=== PATIENT | female | born 1970 | race African-American/Black ===

== ENCOUNTER 2017-11-02 20:08 | Emergency (ER) | payer OTHER ==
[~2017-11-02] VITALS: Ht 154.9 cm; Wt 56.7 kg
[~2017-11-02 20:08] MED LIST: ALBUTEROL0.09 MG/A2 INH; AMOXICILLIN500 M2 PO; AMOXICILLIN500 MG PO; ANAPROX DS550 MG PO; BACTROBAN OINT22 GM PO; CLARITIN10 MG PO; ELIMITE 5%60 GM PO; HYDROCODONE BIT1 T11 PO; IBU800 M1 PO; LORAZEPAM1 MG PO; MOTRIN800 MG PO; NAPROSYN500 MG PO; NORCO 325 MG-51 TAB PO; PREDNISONE20 M1 PO; ROBAXIN750 MG PO; ROBITUSSIN AC 110 ML PO; ROBITUSSIN DM 105 ML PO; TRAMADOL HCL50 MG PO; TRIMOX500 MG PO; ZYRTEC10 MG PO
[2017-11-02] MEDS ORDERED: ANAPROX DS550 MG PO (21:14)
== END 2017-11-02 20:30 | disposition left against medical advice (07) ==
LOC: ED 20:08
DX: Z53.21 Procedure and treatment not carried out due to patient leaving prior to being seen by health care provider (principal)

== ENCOUNTER 2017-11-02 20:27 | Emergency (ER) | payer OTHER ==
[~2017-11-02] VITALS: Wt 102.1 kg
[2017-11-02 20:31] VITALS: BP 133/85
[2017-11-02] MEDS ORDERED: ANAPROX DS550 MG PO (21:14)
== END 2017-11-02 21:15 | disposition left against medical advice (07) ==
LOC: ED 20:27
DX: S63.8X2A Sprain of other part of left wrist and hand, initial encounter (principal); W19.XXXA Unspecified fall, initial encounter; Y93.89 Activity, other specified; Y92.89 Other specified places as the place of occurrence of the external cause; Y99.9 Unspecified external cause status

== ENCOUNTER → 2018-06-07 | Outpatient (CLI) | payer OTHER | END | disposition home or self-care (01) | LOC: MAMMO 14:04 | DX: Z12.31 Encounter for screening mammogram for malignant neoplasm of breast (principal) ==

== ENCOUNTER → 2020-04-20 | Outpatient (CLI) | payer OTHER | END | disposition home or self-care (01) | LOC: COVID19 10:13 | PROVIDERS: ATTEND Family Medicine | DX: Z20.828 Contact with and (suspected) exposure to other viral communicable diseases (principal) ==

== ENCOUNTER → 2020-05-20 | Outpatient (CLI) | payer OTHER | END | disposition home or self-care (01) | LOC: MAMMO 13:38 | PROVIDERS: ATTEND Family Medicine | DX: Z12.31 Encounter for screening mammogram for malignant neoplasm of breast (principal) ==

== ENCOUNTER 2020-09-26 09:17 | Emergency (ER) | payer OTHER ==
[~2020-09-26] VITALS: Ht 170.1 cm; Wt 81.6 kg
[2020-09-26 09:26] VITALS: BP 121/79
== END 2020-09-26 13:05 | disposition home or self-care (01) ==
LOC: ED 09:17
DX: S49.92XA Unspecified injury of left shoulder and upper arm, initial encounter (principal); F17.200 Nicotine dependence, unspecified, uncomplicated; Z79.899 Other long term (current) drug therapy; Z90.49 Acquired absence of other specified parts of digestive tract; Z98.890 Other specified postprocedural states; Z90.711 Acquired absence of uterus with remaining cervical stump; X58.XXXA Exposure to other specified factors, initial encounter; Y93.89 Activity, other specified; Y92.89 Other specified places as the place of occurrence of the external cause; Y99.8 Other external cause status

== ENCOUNTER → 2021-08-13 | Outpatient (CLI) | payer OTHER | END | disposition home or self-care (01) | LOC: MAMMO 10:22 | PROVIDERS: ATTEND Family Medicine | DX: Z12.31 Encounter for screening mammogram for malignant neoplasm of breast (principal); Z80.3 Family history of malignant neoplasm of breast ==

== ENCOUNTER → 2021-09-10 | Outpatient (CLI) | payer OTHER ==
[~2021-09-10] MED LIST changes: +BUPROPION ER100 MG PO; +BUSPIRONE30 MG PO; +ONE DAILY WITH1 EACH PO; +OSTERA TABLET1 EACH PO; +TOPROL XL25 MG PO
== END | disposition home or self-care (01) ==
LOC: CARD 01:43
PROVIDERS: ATTEND Internal Medicine Cardiovascular Disease
DX: R00.2 Palpitations (principal); R06.02 Shortness of breath; I20.8 Other forms of angina pectoris; F41.9 Anxiety disorder, unspecified; K21.9 Gastro-esophageal reflux disease without esophagitis; G44.029 Chronic cluster headache, not intractable; R06.00 Dyspnea, unspecified; R53.83 Other fatigue

== ENCOUNTER → 2021-10-02 | Day surgery (SDC) | payer OTHER ==
[~2021-10-02] VITALS: Ht 154.9 cm; Wt 88.5 kg
[2021-10-02 08:26] VITALS: BP 108/70
[2021-10-02 09:15] VITALS: BP 114/67
[2021-10-02 09:30] VITALS: BP 120/75
[2021-10-02 09:44] VITALS: BP 124/79
== END | disposition home or self-care (01) ==
LOC: SDC 09-29 10:15
PROVIDERS: ATTEND Surgery
DX: Z12.11 Encounter for screening for malignant neoplasm of colon (principal); K21.9 Gastro-esophageal reflux disease without esophagitis; F41.9 Anxiety disorder, unspecified; F17.210 Nicotine dependence, cigarettes, uncomplicated; Z90.49 Acquired absence of other specified parts of digestive tract; Z98.84 Bariatric surgery status; Z79.899 Other long term (current) drug therapy

== ENCOUNTER 2022-03-08 14:30 | Emergency (ER) | payer OTHER ==
[~2022-03-08] VITALS: Ht 154.9 cm; Wt 88.5 kg
[2022-03-08 14:40] VITALS: BP 127/80
[2022-03-08 15:00] LABS: BASO % 0.6 % (0.0-1.0); EOS # 0.1 10*3/uL (0.0-0.4); EOS % 1.9 % (1.0-4.0); HEMATOCRIT 42.8 % (37.0-47.0); LYMPH # 2.1 10*3/uL (1.3-4.4); LYMPH % 31.3 % (27.0-41.0); MEAN CELL VOLUME 87.2 fl (81.0-99.0); MEAN CORPUSCULAR HGB 28.1 pg (27.0-31.0); MEAN CORPUSCULAR HGB CONC 32.2 g/dl (33.0-37.0); MEAN PLATELET VOLUME 8.9 fl (9.6-12.3); MONO # 0.7 10*3/uL (0.1-1.0); MONO % 10.3 % (3.0-9.0); NEUT # 3.8 10*3/uL (2.3-7.9); NEUT % 55.6 % (47.0-73.0); PLATELET COUNT AUTOMATED 261 10*3/uL (130-400); RED BLOOD COUNT 4.91 10*6/uL (4.10-5.10); RED CELL DISTRI WIDTH 13.5 % (0-14.5); WHITE BLOOD COUNT 6.8 10*3/uL (4.8-10.8)
[2022-03-08 15:17] LABS: BILIRUBIN Negative (Negative); BLOOD 1+ (Negative); CLARITY Clear (Clear); COLOR Yellow (Yellow); GLUCOSE Negative (Negative); KETONE Negative (Negative); LEUKO ESTERASE Negative (Negative); NITRITE Negative (Negative); UROBILINOGEN 0.2 E.U./dl (0.0-1.0)
[2022-03-08 15:21] LABS: ALKALINE PHOSPHATASE 63 U/L (45-117); BUN 11 mg/dl (7-24); CREATININE 0.97 mg/dL (0.55-1.02); LIPASE 226 U/L (73-393); SGOT/AST 37 IU/L (3-35); SGPT/ALT 41 U/L (12-78); TOTAL PROTEIN 6.9 gm/dL (6.4-8.2)
[2022-03-08 15:24] LABS: CHLORIDE 110 mmol/L (98-107); POTASSIUM 3.8 mmol/L (3.5-5.1); SODIUM 139 mmol/L (136-145)
[2022-03-08 15:39] LABS: BACTERIA 1+; EPITHELIAL CELLS 16-20; WBC 0-2 wbc/hpf (0-5)
[2022-03-08] MEDS ORDERED: ONDANSETRON4 MG SL (16:41)
== END 2022-03-08 16:47 | disposition home or self-care (01) ==
LOC: ED 14:30
PROVIDERS: Nurse Practitioner Family
DX: A08.39 Other viral enteritis (principal); R10.11 Right upper quadrant pain; R10.32 Left lower quadrant pain; Z98.890 Other specified postprocedural states; Z90.49 Acquired absence of other specified parts of digestive tract; Z90.710 Acquired absence of both cervix and uterus

== ENCOUNTER 2022-04-14 18:01 | Emergency (ER) | payer OTHER ==
[~2022-04-14] VITALS: Ht 154.9 cm; Wt 88.5 kg
[~2022-04-14 18:01] MED LIST changes: +ONDANSETRON4 MG SL
[2022-04-14 18:11] VITALS: BP 117/83
[2022-04-14] MEDS ORDERED: ZITHROMAX250 MG PO (20:10)
[2022-04-14] MEDS ORDERED: PREDNISONE20 M1 PO (20:10)
== END 2022-04-14 21:55 | disposition home or self-care (01) ==
LOC: ED 18:01
DX: J40 Bronchitis, not specified as acute or chronic (principal); Z20.822 Contact with and (suspected) exposure to COVID-19; J06.9 Acute upper respiratory infection, unspecified; Z79.899 Other long term (current) drug therapy; Z98.890 Other specified postprocedural states; Z90.49 Acquired absence of other specified parts of digestive tract; Z90.710 Acquired absence of both cervix and uterus

== ENCOUNTER 2022-08-14 17:12 | Emergency (ER) | payer OTHER ==
[~2022-08-14] VITALS: Wt 88.5 kg
[~2022-08-14 17:12] MED LIST changes: +ZITHROMAX250 MG PO
[2022-08-14 18:06] VITALS: BP 114/71
[2022-08-14] MEDS ORDERED: AMOXICILLIN875 MG PO (19:50)
== END 2022-08-14 20:04 | disposition home or self-care (01) ==
LOC: ED 17:12
DX: J02.9 Acute pharyngitis, unspecified (principal); Z20.822 Contact with and (suspected) exposure to COVID-19; Z79.899 Other long term (current) drug therapy; Z98.890 Other specified postprocedural states; Z90.49 Acquired absence of other specified parts of digestive tract; Z90.710 Acquired absence of both cervix and uterus

== ENCOUNTER → 2022-09-17 | Outpatient (CLI) | payer OTHER ==
[~2022-09-17] MED LIST changes: +AMOXICILLIN875 MG PO
== END | disposition home or self-care (01) ==
LOC: MAMMO 08:50
PROVIDERS: ATTEND Obstetrics & Gynecology
DX: Z12.31 Encounter for screening mammogram for malignant neoplasm of breast (principal); N63.14 Unspecified lump in the right breast, lower inner quadrant

== ENCOUNTER → 2023-02-12 | Outpatient (CLI) | payer OTHER | END | disposition home or self-care (01) | LOC: ORTHO 00:14 | PROVIDERS: ATTEND Orthopaedic Surgery | DX: M17.11 Unilateral primary osteoarthritis, right knee (principal) ==

== ENCOUNTER 2023-07-12 09:31 | Emergency (ER) | payer OTHER ==
[~2023-07-12] VITALS: Ht 154.9 cm; Wt 88.5 kg
[2023-07-12 09:41] VITALS: BP 135/77
[2023-07-12] MEDS ORDERED: FLUORESCEIN SODIUM 1 MG STRIP OPH ONE (09:50)
[2023-07-12] MEDS ORDERED: Tetracaine Hydrochloride 0.5% 4 ML BOT OPH ONE (09:50)
== END 2023-07-12 11:53 | disposition home or self-care (01) ==
LOC: ED 09:31
DX: H16.001 Unspecified corneal ulcer, right eye (principal); Z90.49 Acquired absence of other specified parts of digestive tract; Z98.890 Other specified postprocedural states; Z90.11 Acquired absence of right breast and nipple; Z90.710 Acquired absence of both cervix and uterus

== ENCOUNTER → 2023-08-04 | Outpatient (CLI) | payer OTHER ==
[~2023-08-04] MED LIST changes: +NORVASC5 MG PO; +Technetium Tc 99M Tetrofosmi 0.23 MG KIT IJ SCH
== END | disposition home or self-care (01) ==
LOC: CARD 02:21
PROVIDERS: ATTEND Internal Medicine Cardiovascular Disease
DX: R07.89 Other chest pain (principal)

== ENCOUNTER → 2023-08-10 | Outpatient (CLI) | payer OTHER ==
[~2023-08-10] MED LIST changes: -Technetium Tc 99M Tetrofosmi 0.23 MG KIT IJ SCH
== END | disposition home or self-care (01) ==
LOC: CARD 12:41
PROVIDERS: ATTEND Family Medicine
DX: I34.81 Nonrheumatic mitral (valve) annulus calcification (principal); R60.0 Localized edema

== ENCOUNTER 2024-05-26 12:33 | Emergency (ER) | payer OTHER ==
[~2024-05-26] VITALS: Ht 154.9 cm; Wt 95.3 kg
[2024-05-26 12:47] VITALS: BP 144/88
[2024-05-26] MEDS ORDERED: Ketorolac Tromethamine 30 MG/ML VIAL IM ONE (12:55)
[2024-05-26 13:05] LABS: BASO % 0.4 % (0.0-1.0); EOS # 0.1 10*3/uL (0.0-0.4); EOS % 1.3 % (1.0-4.0); HEMATOCRIT 43.4 % (37.0-47.0); MEAN CELL VOLUME 86.6 fl (81.0-99.0); MEAN CORPUSCULAR HGB 26.9 pg (27.0-31.0); MEAN CORPUSCULAR HGB CONC 31.1 g/dl (33.0-37.0); MEAN PLATELET VOLUME 9.3 fl (9.6-12.3); MONO # 0.5 10*3/uL (0.1-1.0); MONO % 9.6 % (3.0-9.0); NEUT # 2.5 10*3/uL (2.3-7.9); NEUT % 45.9 % (47.0-73.0); PLATELET COUNT AUTOMATED 288 10*3/uL (130-400); RED BLOOD COUNT 5.01 10*6/uL (4.10-5.10); RED CELL DISTRI WIDTH 12.9 % (0-14.5); WHITE BLOOD COUNT 5.4 10*3/uL (4.8-10.8)
[2024-05-26 13:22] LABS: BILIRUBIN Negative (Negative); BLOOD Negative (Negative); CLARITY Clear (Clear); COLOR Yellow (Yellow); GLUCOSE Negative (Negative); KETONE Negative (Negative); LEUKO ESTERASE Negative (Negative); NITRITE Negative (Negative); PH 6.5 (4.5-8.0); UROBILINOGEN 0.2 E.U./dl (0.0-1.0)
[2024-05-26 13:31] LABS: ALKALINE PHOSPHATASE 79 U/L (46-116); BUN 16 mg/dl (9-23); CHLORIDE 102 mmol/L (98-107); LIPASE 51 U/L (12-53); POTASSIUM 4.4 mmol/L (3.4-5.1); SGPT/ALT 21 U/L (5-49); TOTAL PROTEIN 7.5 gm/dL (6.0-8.0)
[2024-05-26 13:52] LABS: BACTERIA 1+; WBC 0-2 wbc/hpf (0-5)
[2024-05-26] MEDS ORDERED: Ondansetron4 MG PO (14:24)
== END 2024-05-26 14:50 | disposition home or self-care (01) ==
LOC: ED 12:33
PROVIDERS: Physician Assistant Medical
DX: R10.11 Right upper quadrant pain (principal); I10 Essential (primary) hypertension; R11.0 Nausea; E78.5 Hyperlipidemia, unspecified; Z90.49 Acquired absence of other specified parts of digestive tract; Z90.710 Acquired absence of both cervix and uterus

== ENCOUNTER → 2024-06-12 | Outpatient (CLI) | payer OTHER ==
[~2024-06-12] MED LIST changes: +Ondansetron4 MG PO
== END | disposition home or self-care (01) ==
LOC: RAD 15:17
PROVIDERS: ATTEND Family Medicine
DX: M47.817 Spondylosis without myelopathy or radiculopathy, lumbosacral region (principal); M54.50 Low back pain, unspecified